=== PATIENT | female | born 1940 | race Caucasian/White ===

== ENCOUNTER 2018-09-07 09:43 | Outpatient (CLI) | payer OTHER | END 2018-09-11 17:00 | disposition home or self-care (01) | LOC: RAD 09:43 | DX: K59.09 Other constipation (principal) ==

== ENCOUNTER 2022-10-27 14:10 | Inpatient (IN) | payer OTHER ==
[~2022-10-27] VITALS: Ht 121.9 cm; Wt 45.4 kg
[2022-10-27] MEDS ORDERED: ATORVASTATIN CA20 MG PO (14:41)
[2022-10-27] MEDS ORDERED: LEVOFLOXACIN500 MG PO (14:42)
[2022-10-27] MEDS ORDERED: LISINOPRIL20 MG PO (14:42)
[2022-10-27] MEDS ORDERED: SYNTHROID75 MCG PO (14:42)
[2022-10-27] MEDS ORDERED: ELIQUIS5 MG PO (14:42)
[2022-10-27] MEDS ORDERED: AMIODARONE HCL100 MG PO (14:42)
== END 2022-10-30 13:33 | disposition home or self-care (01) | DRG 178 ==
LOC: ER 14:10 → SEC-K 20:06 → MEDJ 10-28 12:54
PROVIDERS: ADMIT Internal Medicine; ATTEND Internal Medicine
PROC: BW24ZZZ Computerized Tomography (CT Scan) of Chest and Abdomen (ICD-10-PCS; 2022-10-28)
PROC: 4A12X4Z Monitoring of Cardiac Electrical Activity, External Approach (ICD-10-PCS; 2022-10-28)
PROC: XW033E5 Introduction of Remdesivir Anti-infective into Peripheral Vein, Percutaneous Approach, New Technology Group 5 (ICD-10-PCS; principal; 2022-10-29)
DX: U07.1 COVID-19 (principal); E87.1 Hypo-osmolality and hyponatremia; N17.9 Acute kidney failure, unspecified; E03.9 Hypothyroidism, unspecified; I10 Essential (primary) hypertension; E86.0 Dehydration; E87.8 Other disorders of electrolyte and fluid balance, not elsewhere classified; I48.91 Unspecified atrial fibrillation

== ENCOUNTER 2023-12-08 14:13 | Inpatient (IN) | payer OTHER ==
[~2023-12-08] VITALS: Ht 121.9 cm; Wt 37.6 kg
[~2023-12-08 14:13] MED LIST: AMIODARONE HCL100 MG PO; ATORVASTATIN CA20 MG PO; ELIQUIS5 MG PO; LEVOFLOXACIN500 MG PO; LISINOPRIL20 MG PO; SYNTHROID75 MCG PO
[2023-12-08] MEDS ORDERED: 0.9 % SODIUM CHLORIDE 500 ML IV ONE (15:45)
[2023-12-08] MEDS ORDERED: ONDANSETRON HCL 2 MG/ML VIAL IV ONE (15:45)
[2023-12-08] MEDS ORDERED: FAMOTIDINE/PF 20 MG/2 ML VIAL IV ONE (15:45)
[2023-12-08 16:29] LABS: HEMATOCRIT 31.6 % (36.0-45.00); HEMOGLOBIN 10.8 g/dL (12.0-15.00); MEAN CELL VOLUME 81.4 fL (80.00-100.00); MEAN CORPUSCULAR HEMOGLOBIN 27.7 pg (27.00-32.0); MEAN CORPUSCULAR HGB CONC 34.1 g/dl (32.0-36.0); PLATELET COUNT 355 K/uL (150-450); RED BLOOD COUNT 3.88 M/uL (4.00-6.00)
[2023-12-08 16:30] LABS: URINE APPEARANCE Clear; URINE BILIRRUBIN Negative (NEGATIVE); URINE BLOOD Moderate; URINE COLOR Yellow; URINE GLUCOSE Negative (NEGATIVE); URINE KETONE 15 (NEGATIVE); URINE LEUKOCYTE Negative; URINE NITRATE Negative; URINE PROTEIN Negative (NEGATIVE); URINE UROBILINOGEN 0.2 E.U./dl
[2023-12-08 16:33] LABS: URINE BACTERIA 40.3 uL (0.0-1933); URINE EPITHELIAL CELLS 7.8 uL (0.0-38.8); URINE RBC 60.4 uL (0.0-20.8); URINE WBC 9.2 uL (0.0-23.2)
[2023-12-08 16:38] LABS: ALBUMIN 3.3 gm/dL (3.4-5.0); BILIRUBIN TOTAL 0.4 mg/dL (0.3-1.2); CALCIUM 9.1 mg/dL (8.5-10.1); CREATININE SERUM 1.33 mg/dL (0.55-1.02); GFR 38.19; GLOBULINA 3.4 G/DL (2.4-3.5); POTASSIUM 4.7 mEq/L (3.5-5.1); TOTAL PROTEIN 6.7 gm/dL (6.4-8.2)
[2023-12-08] MEDS ORDERED: MORPHINE SULFATE 4 MG/ML CARTRIDGE IV ONE (18:15)
[2023-12-08] MEDS ORDERED: FUROsemide 20 MG/2 ML VIAL IV SCH (21:55)
[2023-12-08] MEDS ORDERED: LACTULOSE 20 G/30 ML BLIST.PACK PO SCH (21:56)
[2023-12-08] MEDS ORDERED: FAMOTIDINE/PF 20 MG in 0.9 % SODIUM CHLORIDE 100 ML IV SCH (21:56)
[2023-12-08] MEDS ORDERED: ATORVASTATIN CALCIUM 20 MG TABLET PO SCH (21:57)
[2023-12-08] MEDS ORDERED: APIXABAN 5 MG TABLET PO SCH (21:57)
[2023-12-08] MEDS ORDERED: MORPHINE SULFATE 4 MG/ML CARTRIDGE IV PRN (22:00)
[2023-12-09 01:31] LABS: INR 1.07; PARTIAL THROMBOPLASTIN TIME 31.4 SECONDS (22.0-34.0); PROTHROMBIN TIME 11.2 SECONDS (9.0-11.5)
[2023-12-09 01:35] LABS: CHOL HDL RATIO 3.8 (0-5.0)
[2023-12-09 01:37] LABS: C-REACTIVE PROTEIN 1.03 MG/DL (0.00-0.29)
[2023-12-09] MEDS ORDERED: LEVOTHYROXINE SODIUM 75 MCG TABLET PO SCH (06:00)
[2023-12-09 11:40] LABS: ALBUMIN 3.6 gm/dL (3.4-5.0); BILIRUBIN TOTAL 0.5 mg/dL (0.3-1.2); CALCIUM 9.6 mg/dL (8.5-10.1); CREATININE SERUM 1.39 mg/dL (0.55-1.02); GFR 36.3; GLOBULINA 3.3 G/DL (2.4-3.5); POTASSIUM 5.24 mEq/L (3.5-5.1); TOTAL PROTEIN 6.9 gm/dL (6.4-8.2)
[2023-12-09] MEDS ORDERED: POLYETHYLENE GLYCOL 3350 238 GM POWDER PO NR (14:00)
[2023-12-09] MEDS ORDERED: FUROsemide 40 MG/4 ML VIAL IV SCH (21:00)
[2023-12-10 08:27] LABS: CALCIUM 9.2 mg/dL (8.5-10.1); CREATININE SERUM 1.31 mg/dL (0.55-1.02); GFR 38.87; POTASSIUM 4.85 mEq/L (3.5-5.1)
[2023-12-10] MEDS ORDERED: fentaNYL CITRATE 50 MCG/ML AMPUL IV PUSH NR (09:15)
[2023-12-10] MEDS ORDERED: MIDAZOLAM HCL 2 MG/2 ML VIAL IV NR (09:15)
[2023-12-10] MEDS ORDERED: DIPHENHYDRAMINE HCL 50 MG/ML VIAL 1ML IV NR (09:15)
[2023-12-10 19:04] LABS: BILI PERITONEAL FLUID 0.48 mg/dl; TP PERITONEAL FLUID 4.3 g/dl
[2023-12-10] MEDS ORDERED: 0.9 % SODIUM CHLORIDE 250 ML IV STA (21:24)
[2023-12-10] MEDS ORDERED: 0.9 % SODIUM CHLORIDE 1,000 ML IV SCH (21:30)
[2023-12-11] MEDS ORDERED: FAMOTIDINE/PF 20 MG in 0.9 % SODIUM CHLORIDE 100 ML IV SCH (09:00)
[2023-12-11] MEDS ORDERED: DIATRIZOATE MEGLUMINE, SODIUM 30 ML BOTTLE PO NR (11:00)
== END 2023-12-12 17:22 | disposition home or self-care (01) | DRG 392 ==
LOC: ER 14:13 → SEC-K 21:54 → MEDI 12-09 14:02
PROVIDERS: General Practice; Nurse Practitioner Family; Radiology Vascular & Interventional Radiology; ADMIT Internal Medicine; ATTEND Internal Medicine
PROC: BW21ZZZ Computerized Tomography (CT Scan) of Abdomen and Pelvis (ICD-10-PCS; 2023-12-08)
PROC: 0DJD8ZZ Inspection of Lower Intestinal Tract, Via Natural or Artificial Opening Endoscopic (ICD-10-PCS; principal; 2023-12-10)
PROC: 0W9G3ZZ Drainage of Peritoneal Cavity, Percutaneous Approach (ICD-10-PCS; 2023-12-10)
PROC: BW21YZZ Computerized Tomography (CT Scan) of Abdomen and Pelvis using Other Contrast (ICD-10-PCS; 2023-12-11)
DX: K59.09 Other constipation (principal); N13.30 Unspecified hydronephrosis; R18.8 Other ascites; N20.0 Calculus of kidney; N13.5 Crossing vessel and stricture of ureter without hydronephrosis; E03.9 Hypothyroidism, unspecified